=== PATIENT | female | born 1995 | race American Indian/Alaskan Native ===

== ENCOUNTER 2024-12-22 11:16 | Emergency (ER) | payer OTHER ==
[~2024-12-22] VITALS: Ht 165.1 cm; Wt 57.0 kg
[2024-12-22 11:29] VITALS: O2SAT 99
[2024-12-22 12:04] LABS: BASOPHILS % 0.4 % (0.0-2.0); EOSINOPHILS % 1.3 % (0.0-5.0); HEMATOCRIT. 37.9 % (36.0-48.0); HEMOGLOBIN. 12.8 g/dL (12.0-16.0); LYMPHOCYTES % 12.8 % (20.0-50.0); MEAN PLATELET VOLUME 7.9 fl (7.4-10.4); MONOCYTES % 4.7 % (2.0-8.0); NEUTROPHILS % 80.8 % (40.0-76.0); PLATELET 267 x1000/uL (130-400); RED BLOOD CELL COUNT 4.22 mill/uL (4.2-5.4); RED CELL DISTRIBUTION WIDTH 13.4 % (11.6-14.6)
[2024-12-22 12:16] VITALS: BP 117/85; PULSE 76; RESP 18; TEMP 36.9; O2SAT 99
[2024-12-22 12:22] LABS: CREATININE 0.5 mg/dL (0.6-1.0); UREA NITROGEN BLOOD 11 mg/dL (9-23)
[2024-12-22] MEDS: FAMOTIDINE 20MG TABLET PO ONE (12:44)
[2024-12-22 12:45] VITALS: TEMP 98.4
[2024-12-22] MEDS: METOCLOPRAMIDE HCL 10MG TABLET PO ONE (12:45)
[2024-12-22] MEDS: ACETAMINOPHEN 325MG TABLET PO ONE (12:45)
[2024-12-22 12:49] LABS: CLARITY URINE Clear (CLEAR); COLOR URINE YELLOW (YELLOW); LEUKOCYTE ESTERASE URINE NEGATIVE (NEGATIVE); NITRITE URINE NEGATIVE (NEGATIVE); OCCULT BLOOD URINE NEGATIVE (NEGATIVE)
[2024-12-22 12:56] LABS: ASPARTATE AMINOTRANSFERASE 12 IU/L (<34); BILIRUBIN DIRECT 0.1 mg/dL (<=3.0); BILIRUBIN TOTAL 0.5 mg/dL (0.1-1.0); PROTEIN TOTAL 6.9 g/dL (6.0-8.3)
[2024-12-22 13:15] LABS: B-HCG QUANTITATIVE 96666 mIU/mL (<6)
== END 2024-12-22 13:44 | disposition left against medical advice (07) ==
LOC: ER 11:16
DX: R10.13 Epigastric pain (principal); R11.2 Nausea with vomiting, unspecified; R53.1 Weakness; N89.8 Other specified noninflammatory disorders of vagina
CPT/HCPCS: 99284; 80076; 80048; 81003; 81025; 84702; 83690; 85025; 36415; J8597; A4606